=== PATIENT | male | born 1960 | race Hispanic/Latino ===

== ENCOUNTER 2018-10-21 11:38 | Emergency (ER) | payer MEDICAID, OTHER ==
[~2018-10-21 11:38] MED LIST: ATIVAN IV ONE
[2018-10-21 12:57] LABS: Hematocrit 45.2 % (35.5-45.6); Hemoglobin 15.6 gm/dl (11.8-15.2); Mean Corpuscular HGB Conc 35 % (32-34); Mean Corpuscular Volume 91 fl (84-94); Red Blood Count 4.95 M/mm3 (3.65-5.03)
[2018-10-21 12:58] LABS: Red Cell Distribution Width 13.3 % (13.2-15.2)
[2018-10-21] MEDS ORDERED: APRESOLINE IV ONE (13:05)
--- NOTE | 2018-10-21 13:05 | Emergency Department Report ---
HPI - General Chief Complaint: Altered Mental Status Time Seen by Provider: 10/21/18 12:05 - HPI HPI: 58-year-old male presents to the emergency department from [place] for an evaluation of altered mental status. The patient is altered and n onverbal and all the information comes from his , who is bedside. Apparently the patient has been dealing with progressively worsening neurological status over the past few months. He was dealing with some generalized weakness, tremors, among some other symptoms. He has been evaluated by primary care, neurology, and had a brain MRI that was read as normal. Recently, the patient attempted suicide by overdose as he felt that his medical condition and symptoms were hopeless and he thought that he could have a progressive neurological disorder such as ALS. Also, the patient's daughter pre viously had autoimmune encephalitis and both the patient and his has had some concerns that he is/was having some similar symptoms. The patient's also brings up a concern that their house has black mold and she wonders if this could be a reason for his symptoms and declined. He was sent here from [place] as he has become less responsive to the staff and he has stopped eating/drinking. ED Past Medical Hx - Past Medical History Hx Psychiatric Treatment: (MDD, Anxiety) - Social History Smoking Status: Unknown if ever smoked ED Review of Systems ROS: Stated complaint: AMS Other details as noted in HPI Comment: Unobtainable due to pts medical conditions Physical Exam - Physical Exam Vital Signs: Vital Signs 10/21/18 11:48 Temperature 99.2 F Pulse Rate 89 Respiratory 18 Rate Blood Pressure 189/96 [Left] O2 Sat by Pulse 98 Oximetry Physical Exam: GENERAL: The patient is well-developed but appears altered. HENT: Normocephalic. Atraumatic. Patient has moist mucous membranes. EYES: Pupils equal reactive to light bilaterally. The patient is staring straight ahead. NECK: Supple. Trachea is midline. CHEST/LUNGS: Clear to auscultation. There is no respiratory distress noted. HEART/CARDIOVASCULAR: Regular. There is no tachycardia. There is no murmur. ABDOMEN: Abdomen is soft, nontender. Patient has normal bowel sounds. There is no abdominal distention. SKIN: Skin is warm and dry. NEURO: The patient is awake but unresponsive. He is seen at different points moving all of his extremities appropriately but he does not respond to any verbal commands or stimuli. He does withdraw from painful stimuli. He is nonverbal. MUSCULOSKELETAL: There is no tenderness or deformity. There is no evidence of acute injury. ED Course Vital Signs 10/21/18 11:48 Temperature 99.2 F Pulse Rate 89 Respiratory 18 Rate Blood Pressure 189/96 [Left] O2 Sat by Pulse 98 Oximetry - Consultations Consultation #1: 10/21/18 15:[address] Garcia, a physician at the [place] transfer hotline. The patient has been accepted for transfer to [facility] by Dr. Price. ED Medical Decision Making - Lab Data Result diagrams: 10/21/18 12:33 10/21/18 12:33 - Radiology Data Radiology results: report reviewed CT HEAD WITHOUT CONTRAST: HISTORY: Altered mental status. TECHNIQUE: Sequential 2.5mm CT images. COMPARISON: none. FINDINGS: Comment: This exam is slightly limited secondary to patient motion. Cerebral Parenchyma: Within normal limits. Cerebellum: Within normal limits. Brainstem: Within normal limits. Ventricles: Normal. Sella: Normal. Extra-axial spaces: Normal. Basal Cisterns: Normal. Intracranial Hemorrhage: None. Midline Shift: None. Calvarium: Normal. Sinuses: Normal. Mastoid Air Cells: Normal. Visualized Orbits: Normal. IMPRESSION: Slightly limited by patient motion. No acute intracranial process is identified. Transcribed By: TTR Dictated By: MONTSE TROTTER JR, MD Electronically Authenticated By: MONTSE TROTTER JR, MD Signed Date/Time: 10/21/18 4337 - Medical Decision Making This patient presents to the emergency department from his psychiatric facility after he has had some decline in his mental status over the past few days. He is mostly nonverbal. He is awake but just staring straight ahead and is unresponsive to any verbal stimuli or commands. He does not appear to have any lateralizing deficits as all of his extremities have been seen moving spontaneously at different points during his examination and ED course. CT head was slightly limited by patient motion but otherwise no acute intracranial process was identified. The patient's labs have been unremarkable including CBC, CMP, TSH, troponin, blood alcohol level. We have been unable to get an EKG urinalysis secondary to patient's confusion and/or agitation. The patient has been accepted for transfer to [facility] for further evaluation. The patient's current symptoms could be secondary to some psychosis versus a primary neurological disorder, and for this reason I am unable to medically clear him to return to the psychiatric facility. - Differential Diagnosis schizophrenia, substance abuse, ALS, MS Critical Care Time: No Critical care attestation.: If time is entered above; I have spent that time in minutes in the direct care of this critically ill patient, excluding procedure time. ED Disposition Clinical Impression: Confusion, Encephalopathy Altered mental status Qualifiers: Altered mental status type: unspecified Qualified Code(s): R41.82 - Altered mental status, unspecified Hypertension Qualifiers: Hypertension type: essential hypertension Qualified Code(s): I10 - Essential (primary) hypertension Disposition: DC/TX-70 ANOTHER TYPE HLTHCARE Is pt being admited?: No Condition: Fair Instructions: Hypertension (ED) Referrals: PRIMARY CARE, [Primary Care Provider] - 3-5 Days Time of Disposition: 15:39
[2018-10-21 13:06] LABS: INR 1.01 (0.87-1.13)
[2018-10-21] MEDS ORDERED: ATIVAN ONE (13:41)
--- NOTE | 2018-10-21 13:57 | Cat Scan Report ---
CT HEAD WITHOUT CONTRAST: HISTORY: Altered mental status. TECHNIQUE: Sequential 2.5mm CT images. COMPARISON: none. FINDINGS: Comment: This exam is slightly limited secondary to patient motion. Cerebral Parenchyma: Within normal limits. Cerebellum: Within normal limits. Brainstem: Within normal limits. Ventricles: Normal. Sella: Normal. Extra-axial spaces: Normal. Basal Cisterns: Normal. Intracranial Hemorrhage: None. Midline Shift: None. Calvarium: Normal. Sinuses: Normal. Mastoid Air Cells: Normal. Visualized Orbits: Normal. IMPRESSION: Slightly limited by patient motion. No acute intracranial process is identified.
[2018-10-21 14:14] LABS: Alanine Aminotransferase 32 units/L (7-56); Albumin 4.4 g/dL (3.9-5); BUN/Creatinine Ratio 21; Blood Urea Nitrogen 21 mg/dL (9-20); Calcium 9.5 mg/dL (8.4-10.2); Hemolysis Index 56
[2018-10-21 14:15] LABS: Basophils % (Manual) 0 % (0.0-1.8); Eosinophils % (Manual) 0 % (0.0-4.3); Total Cells Counted 100
[2018-10-21 14:16] LABS: Large Platelets Few; Platelet Count 171 K/mm3 (140-440); Platelet Estimate Consistent w Auto; RBC Morphology Normal
[2018-10-21] MEDS ORDERED: ATIVAN IV ONE (16:19)
[2018-10-21] MEDS ORDERED: ZOFRAN IV ONE (16:45)
[2018-10-21 17:04] LABS: Bilirubin,Urine NEG (Negative); Color,Urine Amber (Yellow)
[2018-10-21 17:05] LABS: Blood,Urine NEG (Negative); Mucus,Urine 3+ /HPF
[2018-10-21 18:34] VITALS: BP 189/96
== END 2018-10-21 18:00 | disposition other institution (70) ==
LOC: ED 11:38
DX: G93.40 Encephalopathy, unspecified (principal); R41.82 Altered mental status, unspecified; I10 Essential (primary) hypertension; F32.9 Major depressive disorder, single episode, unspecified; F41.9 Anxiety disorder, unspecified; Z88.5 Allergy status to narcotic agent
CPT/HCPCS: 36415; 70450; 80053; 81001; 82140; 84443; 84484; 85007; 85025; 85610; 85730; 87040; 96374; 96375; 96376; 99285; G0480; J0360; J2060; 80320